=== PATIENT | female | born 1990 | race Caucasian/White ===

== ENCOUNTER 2020-10-03 01:09 | Emergency (ER) | payer OTHER ==
[2020-10-03 01:35] LABS: BASOPHIL 0.2 % (0-2); EOSINOPHIL 0.2 % (0-5); HCT 33.7 % (37.0-47.0); HGB 11.2 g/dl (12.5-16.0); LYMPHOCYTE 13.2 % (15-48); MCH 28.9 pg (25.0-31.0); MCHC 33.2 g/dL (32.0-36.0); MCV 86.9 fL (78.0-100.0); MPV 10.4 fL (6.0-9.5); NEUTROPHIL 79.1 % (41-80); NRBC 0; PLT 270 K/uL (150-400); RBC 3.88 M/uL (4.20-5.40); RDW 16.4 % (11.5-14.0); WBC 12.2 K/uL (4.0-10.5)
[2020-10-03 01:53] LABS: ALBUMIN 3.2 g/dL (3.4-5.0); ALKALINE PHOSHATASE 89 U/L (46-116); ALT 202 U/L (14-59); AST 680 U/L (15-37); BILIRUBIN - TOTAL 0.3 mg/dL (0.2-1.0); BUN 16 mg/dL (7-18); BUN/CREAT RATIO (CALC) 18.2 RATIO; CHLORIDE 100 mmol/L (98-107); CO2 (BICARBONATE) 32 mmol/L (21-32); CREATININE 0.88 mg/dL (0.51-0.95); GLOBULIN (CALCULATION) 3.5 g/dL; GLUCOSE 96 mg/dL (74-106); POTASSIUM 3.4 mmol/L (3.5-5.1); TOTAL PROTEIN 6.7 g/dL (6.4-8.2)
[2020-10-03 01:54] LABS: ACETAMINOPHEN (TYLENOL) < 2.0 ug/mL (10.0-30.0)
[2020-10-03 03:03] LABS: BILIRUBIN NEGATIVE (NEGATIVE); BLOOD 3+ Ery/uL (NEGATIVE); CLARITY SLIGHTLY HAZY (CLEAR); COLOR YELLOW (YELLOW); GLUCOSE (U) NORMAL (NORMAL); LEUKOCYTES TRACE Leu/uL (NEGATIVE); MARIJUANA (THC) NEGATIVE (NEGATIVE); NITRITE NEGATIVE (NEGATIVE); PROTEIN 1+ mg/dL (NEGATIVE); SPECIFIC GRAVITY 1.025 (1.001-1.030)
[2020-10-03 03:04] LABS: AMPHETAMINES NEGATIVE (NEGATIVE); BARBITURATES NEGATIVE (NEGATIVE); ECSTASY (MDMA) NEGATIVE (NEGATIVE); METHADONE NEGATIVE (NEGATIVE); OPIATES NEGATIVE (NEGATIVE); OXYCODONE NEGATIVE (NEGATIVE)
[2020-10-03 03:08] LABS: BACTERIA 1+; URINARY WBC RARE
== END 2020-10-03 03:50 | disposition home or self-care (01) ==
LOC: FER 01:09
PROVIDERS: Emergency Medicine Emergency Medical Services
DX: T40.1X1A Poisoning by heroin, accidental (unintentional), initial encounter (principal); R74.01 Elevation of levels of liver transaminase levels; F17.210 Nicotine dependence, cigarettes, uncomplicated; Z88.0 Allergy status to penicillin
CPT/HCPCS: 36415; 70450; 71045; 80053; 80305; 81001; 85025; 93005; G0480; J2405; J7030